=== PATIENT | male | born 1955 | race Hispanic/Latino ===

== ENCOUNTER 2024-01-16 06:25 | Day surgery (SDC) | payer OTHER ==
[~2024-01-16] VITALS: Ht 165.1 cm; Wt 95.7 kg
[2024-01-16] VITALS (10 sets, daily range): BP systolic 94–127; BP diastolic 57–72; PULSE 54–70; RESP 15–18
[~2024-01-16 06:25] MED LIST: ASPI-1197 PO; ATOR10 PO; BENA-8 PO; CILO50TA2 PO; METF-444 PO; SEMA7TAB2 PO; TAMS-1 PO
[2024-01-16] MEDS: 0.9%NACL 1000ML 1,000 ML IV ONE (06:53)
[2024-01-16] MEDS ORDERED: PROPOFOL 10 MG/ML 20ML VIAL IV ONE ×2 (08:14)
== END 2024-01-16 09:50 | disposition home or self-care (01) ==
LOC: ENDO 06:25 → DAH 06:25 → ENDO 09:50
PROVIDERS: ATTEND Internal Medicine Gastroenterology
DX: K92.1 Melena (principal); K57.30 Diverticulosis of large intestine without perforation or abscess without bleeding; K62.1 Rectal polyp; I10 Essential (primary) hypertension; E11.69 Type 2 diabetes mellitus with other specified complication; M19.90 Unspecified osteoarthritis, unspecified site; Z79.84 Long term (current) use of oral hypoglycemic drugs; Z79.82 Long term (current) use of aspirin; Z79.899 Other long term (current) drug therapy; Z90.49 Acquired absence of other specified parts of digestive tract; Z98.890 Other specified postprocedural states; Z86.010 Personal history of colon polyps
CPT/HCPCS: 82948 ×2; 45380; J7030 ×2; J2704; A4620; A4215 ×2; A4223; A7002; A4222; A4221; A4663; A4606; J3490